=== PATIENT | male | born 1940 | race Caucasian/White ===

== ENCOUNTER 2021-02-17 18:43 | Inpatient (IN) | payer MEDICARE, OTHER ==
[2021-02-17] MEDS ORDERED: Fentanyl 100 MCG/2 ML VIAL ONE ×2 (20:20→21:20)
[2021-02-17 22:26] LABS: Bilirubin Neg (Negative); Blood, Urine 25 (Negative); Clarity Clear (Clear); Glucose, Urine (Dipstick) Normal (Negative); Ketone, Urine 15 mg/dL (Negative); Leukocyte Negative (Negative); Nitrite Negative (Negative); Protein, Urine (Dipstick) 15 mg/dl (Neg-Trace); Urobilinogen Normal mg/dL (Less than 2); pH, Urine 6.5 (5.0-9.0)
[2021-02-17 22:38] LABS: ALT (SGPT) 15 U/L (8-55); AST (SGOT) 18 U/L (5-34); Albumin 3.9 g/dL (3.4-4.8); Alkaline Phosphatase 48 U/L (40-110); Anion Gap 13 mmol/L (10-20); BUN (Urea Nitrogen) 28 mg/dL (8.4-25.7); CK (CPK) 164 U/L (30-200); Calc. Creatinine Clearance 0 mL/min (70-130); Calcium 8.8 mg/dL (7.8-10.44); Carbon Dioxide 25 mmol/L (23-31); Chloride 105 mmol/L (98-107); Globulin 2.7 g/dL (2.4-3.5); Glucose 86 mg/dL (83-110); Protein, Total 6.6 g/dL (5.8-8.1); Sodium 139 mmol/L (136-145)
[2021-02-17 22:39] LABS: #Eosinphils 0.1 10x3/uL (0.0-0.5); #Monocytes 0.6 10x3/uL (0.0-1.1); #Neutrophils 8.4 10x3/uL (1.5-8.4); %Basophils 0.4 % (0.0-2.0); %Eosinophils 0.9 % (0.0-6.0); %Lymphocytes 10.4 % (18.0-47.0); %Monocytes 6.1 % (0.0-10.0); %Neutrophils 81.8 % (40.0-75.0); Hemoglobin 13.8 g/dL (13.5-17.5); Mean Corpuscular HGB CONC 33.6 g/dL (32.0-36.0); Mean Corpuscular Hemoglobin 33.1 pg (27.0-33.0); Mean Corpuscular Volume 98.6 fl (81.2-95.1); Mean Platelet Volume 11.6 fl (7.4-10.4); Platelet Count 162 10x3/uL (150-450); RBC Distribution Width 12.6 % (11.5-14.5); Red Blood Cell (RBC) Count 4.17 10x6/uL (4.32-5.72); White Blood Cell (WBC) Count 10.2 10x3/uL (3.5-10.5)
[2021-02-17] MEDS ORDERED: HYDROcodone/Acetaminophen 5/325 mg Tablet ONE (22:39)
[2021-02-17 22:50] LABS: Squamous Epithelial 0-3 HPF (0-3); WBC/HPF 0-3 HPF (0-3)
[2021-02-17 22:51] LABS: Bacteria/HPF Rare-Few HPF (None Seen); Calcium Oxalate Crystals 1+ HPF (None Seen)
[2021-02-17] MEDS ORDERED: Zolpidem Tartrate 5 MG TAB PO PRN (23:30)
[2021-02-17] MEDS ORDERED: Senokot S 8.6-50 MG TAB PO PRN (23:30)
[2021-02-17] MEDS ORDERED: HYDROcodone/Acetaminophen 5/325 mg Tablet PO PRN (23:30)
[2021-02-17] MEDS ORDERED: Acetaminophen 325 MG TAB PO PRN (23:30)
[2021-02-17] MEDS ORDERED: Calcium Carbonate 500 MG ChewTAB PO PRN (23:30)
[2021-02-18] MEDS ORDERED: Morphine 2 MG/ML VIAL SLOW IVP PRN (01:07)
[2021-02-18 01:15] VITALS: BMI 25.7
[2021-02-18 05:12] LABS: Anion Gap 9 mmol/L (10-20); BUN (Urea Nitrogen) 19 mg/dL (8.4-25.7); Calc. Creatinine Clearance 109 mL/min (70-130); Calcium 8.5 mg/dL (7.8-10.44); Carbon Dioxide 30 mmol/L (23-31); Chloride 104 mmol/L (98-107); Glucose 91 mg/dL (83-110); Magnesium 2.3 mg/dL (1.6-2.6); Potassium 3.8 mmol/L (3.5-5.1); Sodium 139 mmol/L (136-145)
[2021-02-18] MEDS: Famotidine 20 MG TAB PO SCH ×2 (09:10→20:40)
[2021-02-18] MEDS: Lisinopril 10 MG TAB PO SCH (09:10)
[2021-02-18] MEDS: Cholecalciferol 1,000 UNITS (25 MCG) TAB PO SCH (09:10)
[2021-02-18] MEDS: Metoprolol Tartrate 25 MG TAB PO SCH ×2 (09:17→20:40)
[2021-02-18] MEDS: Enoxaparin Sodium 40 MG/0.4 ML SYRINGE SC SCH (09:21)
[2021-02-18 13:45] LABS: SARS-CoV-2 PCR by NAA Not Detected (NotDetected)
[2021-02-18] MEDS ORDERED: Montelukast Sodium 10 mg Tablet PO SCH (14:45)
[2021-02-18] MEDS: Donepezil HCl 5 MG TAB PO SCH (20:40)
[2021-02-19] MEDS: Cholecalciferol 1,000 UNITS (25 MCG) TAB PO SCH (10:53)
[2021-02-19] MEDS: Lisinopril 10 MG TAB PO SCH (10:55)
[2021-02-19] MEDS: Famotidine 20 MG TAB PO SCH ×2 (10:55→20:58)
[2021-02-19] MEDS: Enoxaparin Sodium 40 MG/0.4 ML SYRINGE SC SCH (10:55)
[2021-02-19] MEDS: Metoprolol Tartrate 25 MG TAB PO SCH ×2 (10:56→20:57)
[2021-02-19 16:37] LABS: Bilirubin Neg (Negative); Blood, Urine 250 (Negative); Clarity Cloudy (Clear); Glucose, Urine (Dipstick) Normal (Negative); Ketone, Urine 15 mg/dL (Negative); Leukocyte 25 (Negative); Nitrite Negative (Negative); Protein, Urine (Dipstick) 15 mg/dl (Neg-Trace); Urobilinogen Normal mg/dL (Less than 2)
[2021-02-19 16:45] LABS: Urine Culture Reflex No No
[2021-02-19 16:47] LABS: Bacteria/HPF Rare-Few HPF (None Seen); RBC/HPF Greater than 50 HPF (0-3); Squamous Epithelial None Seen HPF (0-3); WBC/HPF 0-3 HPF (0-3)
[2021-02-19 20:54] VITALS: BP 130/78; TEMP 97.7
[2021-02-19] MEDS: Donepezil HCl 5 MG TAB PO SCH (20:57)
[2021-02-19] MEDS ORDERED: Montelukast Sodium 10 mg Tablet PO SCH (21:00)
== END 2021-02-19 21:45 | DRG 552 ==
LOC: CSHERS 18:43 → CSHTELE 23:30 → UNDOADMOB 02-18 00:43 → INTOOBSV 02-18 00:43 → OBSVTOIN 02-19 12:10
PROVIDERS: ADMIT Student in an Organized Health Care Education/Training Program; ATTEND Family Medicine
DX: S32.000A Wedge compression fracture of unspecified lumbar vertebra, initial encounter for closed fracture (principal); R29.6 Repeated falls; N19 Unspecified kidney failure; Z66 Do not resuscitate; E55.9 Vitamin D deficiency, unspecified; F03.90 Unspecified dementia, unspecified severity, without behavioral disturbance, psychotic disturbance, mood disturbance, and anxiety; M19.90 Unspecified osteoarthritis, unspecified site; R01.1 Cardiac murmur, unspecified; I10 Essential (primary) hypertension; Z20.822 Contact with and (suspected) exposure to COVID-19
CPT/HCPCS: 36415; 70450; 72125; 72128; 72131; 80048; 80053; 81001; 81003; 81015; 82550; 83735; 84443; 84484; 85025; 87086; 87635; 93005; 93306; 96372; 96374; 96376; G0378; J1650; J3010; U0003; U0005

== ENCOUNTER 2022-01-11 16:39 | Inpatient (IN) | payer MEDICARE ==
[2022-01-11] MEDS ORDERED: Morphine 4 MG/ML VIAL ONE (17:27)
[2022-01-11 17:44] LABS: #Basophils 0.1 10x3/uL (0.0-0.2); #Eosinphils 0.1 10x3/uL (0.0-0.5); #Monocytes 1.1 10x3/uL (0.0-1.1); %Basophils 0.4 % (0.0-2.0); %Eosinophils 0.4 % (0.0-6.0); %Lymphocytes 9.3 % (18.0-47.0); %Monocytes 8.3 % (0.0-10.0); %Neutrophils 81.2 % (40.0-75.0); Hemoglobin 13.4 g/dL (13.5-17.5); Mean Corpuscular HGB CONC 32.7 g/dL (32.0-36.0); Mean Corpuscular Hemoglobin 33.3 pg (27.0-33.0); Mean Corpuscular Volume 101.7 fl (81.2-95.1); Mean Platelet Volume 10.4 fl (7.4-10.4); Platelet Count 223 10x3/uL (150-450); Red Blood Cell (RBC) Count 4.03 10x6/uL (4.32-5.72); White Blood Cell (WBC) Count 13.6 10x3/uL (3.5-10.5)
[2022-01-11 17:54] LABS: ALT (SGPT) 36 U/L (8-55); AST (SGOT) 26 U/L (5-34); Albumin 4.2 g/dL (3.4-4.8); Alkaline Phosphatase 63 U/L (40-110); Anion Gap 18 mmol/L (10-20); BUN (Urea Nitrogen) 23 mg/dL (8.4-25.7); Bilirubin, Total 0.7 mg/dL (0.2-1.2); Calc. Creatinine Clearance 0 mL/min (70-130); Carbon Dioxide 24 mmol/L (23-31); Chloride 101 mmol/L (98-107); Globulin 2.9 g/dL (2.4-3.5); Glucose 98 mg/dL (83-110); Magnesium 2.4 mg/dL (1.6-2.6); Potassium 3.8 mmol/L (3.5-5.1); Protein, Total 7.1 g/dL (5.8-8.1); Sodium 139 mmol/L (136-145)
[2022-01-11 18:27] LABS: Bilirubin Neg (Negative); Blood, Urine 25 (Negative); Clarity Clear (Clear); Glucose, Urine (Dipstick) Normal (Negative); Ketone, Urine Negative (Negative); Leukocyte 25 (Negative); Nitrite Negative (Negative); Protein, Urine (Dipstick) 30 mg/dl (Neg-Trace); Specific Gravity, Urine 1.015 (1.002-1.036); Urobilinogen Normal mg/dL (Less than 2)
[2022-01-11 18:50] LABS: Bacteria/HPF 1+ HPF (None Seen); RBC/HPF 0-3 HPF (0-3); Squamous Epithelial 0-3 HPF (0-3)
[2022-01-11 18:51] LABS: Mucous/LPF 2+ LPF (<2+)
[2022-01-11] MEDS ORDERED: cefTRIAXone\\ROCEPHIN 1 GM VIAL ONE (19:06)
[2022-01-11 19:40] LABS: SARS-CoV-2 NAA Rapid Test Not Detected (NotDetected)
[2022-01-11] MEDS ORDERED: Boostrix 0.5 ML (Tdap) VIAL ONE (19:59)
[2022-01-11] MEDS ORDERED: Calcium Carbonate 500 MG ChewTAB PO PRN (20:13)
[2022-01-11] MEDS ORDERED: Guaifenesin DM 100-10/5 ML UDCUP PO PRN (20:13)
[2022-01-11] MEDS ORDERED: Bisacodyl 5 MG TAB PO PRN (20:13)
[2022-01-11] MEDS ORDERED: Acetaminophen 325 MG TAB PO PRN (20:13)
[2022-01-11] MEDS ORDERED: Aspirin 81 mg Enteric Coated Tablet PO SCH ×2 (21:00→22:00)
[2022-01-11] MEDS ORDERED: Montelukast Sodium 10 mg Tablet PO SCH ×2 (21:00→22:00)
[2022-01-11] MEDS ORDERED: Famotidine/PF 20 mg/2ml Vial SLOW IVP SCH (22:00)
[2022-01-11] MEDS ORDERED: cefTRIAXone\\ROCEPHIN 1 GM in Sodium Chloride 0.9% 100 ML IVPB SCH (22:00)
[2022-01-11] MEDS ORDERED: Senokot S 8.6-50 MG TAB PO SCH (22:00)
[2022-01-11] MEDS ORDERED: Lactated Ringer's 500 ML IV SCH (23:30)
[2022-01-12] MEDS ORDERED: ceFAZolin 2 GM/Dextrose 50 ML 2 GM in Premix Bag 1 BAG IVPB SCH (00:01)
[2022-01-12 04:30] LABS: #Eosinphils 0.3 10x3/uL (0.0-0.5); #Monocytes 0.8 10x3/uL (0.0-1.1); #Neutrophils 7.7 10x3/uL (1.5-8.4); %Basophils 0.3 % (0.0-2.0); %Eosinophils 3.2 % (0.0-6.0); %Lymphocytes 11.9 % (18.0-47.0); %Monocytes 8.2 % (0.0-10.0); %Neutrophils 76.1 % (40.0-75.0); Hemoglobin 11.8 g/dL (13.5-17.5); Mean Corpuscular HGB CONC 33.6 g/dL (32.0-36.0); Mean Corpuscular Hemoglobin 33.2 pg (27.0-33.0); Mean Corpuscular Volume 98.9 fl (81.2-95.1); Platelet Count 156 10x3/uL (150-450); RBC Distribution Width 13.2 % (11.5-14.5); Red Blood Cell (RBC) Count 3.55 10x6/uL (4.32-5.72); White Blood Cell (WBC) Count 10.2 10x3/uL (3.5-10.5)
[2022-01-12 04:48] LABS: Anion Gap 11 mmol/L (10-20); BUN (Urea Nitrogen) 24 mg/dL (8.4-25.7); Calc. Creatinine Clearance 97 mL/min (70-130); Calcium 8.4 mg/dL (7.8-10.44); Carbon Dioxide 27 mmol/L (23-31); Chloride 102 mmol/L (98-107); Glucose 103 mg/dL (83-110); Magnesium 2.2 mg/dL (1.6-2.6); Potassium 3.8 mmol/L (3.5-5.1); Sodium 136 mmol/L (136-145)
[2022-01-12] MEDS: HYDROcodone/Acetaminophen 5/325 mg Tablet PO PRN ×2 (06:06→16:59)
[2022-01-12] MEDS ORDERED: DONEPEZIL HCL 10 MG PO SCH (09:00)
[2022-01-12] MEDS ORDERED: Tranexamic Acid 1,000 MG/10 ML VIAL ONE (09:55)
[2022-01-12] MEDS ORDERED: Neomycin-Polymyxin 1 ML AMP ONE (09:55)
[2022-01-12] MEDS ORDERED: PROPOFOL 20 ML ONE (10:52)
[2022-01-12] MEDS ORDERED: Fentanyl 100 MCG/2 ML VIAL ONE ×2 (10:52→13:22)
[2022-01-12] MEDS ORDERED: Rocuronium Bromide 10 MG/ML (10ML VIAL) ONE (10:57)
[2022-01-12] MEDS ORDERED: Lidocaine 2% PF 5 ML VIAL ONE (10:57)
[2022-01-12] MEDS ORDERED: ceFAZolin 2 GM/Dextrose 50 ML IVPB ONE (11:10)
[2022-01-12] MEDS ORDERED: Phenylephrine 10 MG/ML VIAL ONE (11:35)
[2022-01-12] MEDS ORDERED: ePHEDrine Sulfate 50 MG/10 ML VIAL ONE (12:24)
[2022-01-12] MEDS ORDERED: Glycopyrrolate 0.2 MG/ML 5 ML SYRINGE ONE (12:34)
[2022-01-12] MEDS: Cholecalciferol 1,000 UNITS (25 MCG) TAB PO SCH (16:15)
[2022-01-12] MEDS: Citalopram 20 MG TAB PO SCH (16:15)
[2022-01-12] MEDS: Cyanocobalamin (Vitamin B-12) 1,000 MCG TAB PO SCH (16:15)
[2022-01-12] MEDS: Famotidine/PF 20 mg/2ml Vial SLOW IVP SCH ×2 (16:16→21:05)
[2022-01-12] MEDS: Enoxaparin Sodium 40 MG/0.4 ML SYRINGE SC SCH (16:16)
[2022-01-12] MEDS: Folic Acid 1 MG TAB PO SCH (16:17)
[2022-01-12] MEDS: Senokot S 8.6-50 MG TAB PO SCH ×2 (16:17→21:06)
[2022-01-12] MEDS: Rosuvastatin 20 MG TAB PO SCH (16:17)
[2022-01-12] MEDS: Lisinopril 10 MG TAB PO SCH (16:17)
[2022-01-12] MEDS: Morphine 4 MG/ML VIAL SLOW IVP PRN (18:34)
[2022-01-12] MEDS ORDERED: cefTRIAXone\\ROCEPHIN 1 GM in Sodium Chloride 0.9% 100 ML IVPB SCH (20:00)
[2022-01-12] MEDS: ceFAZolin 2 GM/Dextrose 50 ML 2 GM in Premix Bag 1 BAG IVPB SCH (21:01)
[2022-01-12] MEDS: Montelukast Sodium 10 mg Tablet PO SCH (21:05)
[2022-01-12] MEDS: Aspirin 81 mg Enteric Coated Tablet PO SCH (21:05)
[2022-01-13] MEDS: Morphine 4 MG/ML VIAL SLOW IVP PRN ×3 (00:53→15:29)
[2022-01-13] MEDS: ceFAZolin 2 GM/Dextrose 50 ML 2 GM in Premix Bag 1 BAG IVPB SCH ×3 (03:08→20:30)
[2022-01-13] MEDS: HYDROcodone/Acetaminophen 5/325 mg Tablet PO PRN (04:57)
[2022-01-13] MEDS: Rosuvastatin 20 MG TAB PO SCH (08:19)
[2022-01-13] MEDS: Famotidine/PF 20 mg/2ml Vial SLOW IVP SCH ×2 (08:19→20:30)
[2022-01-13] MEDS: Enoxaparin Sodium 40 MG/0.4 ML SYRINGE SC SCH (08:19)
[2022-01-13] MEDS: Cholecalciferol 1,000 UNITS (25 MCG) TAB PO SCH (08:20)
[2022-01-13] MEDS: Citalopram 20 MG TAB PO SCH (08:20)
[2022-01-13] MEDS: Senokot S 8.6-50 MG TAB PO SCH ×2 (08:21→22:05)
[2022-01-13] MEDS: Lisinopril 10 MG TAB PO SCH (08:21)
[2022-01-13] MEDS: Cyanocobalamin (Vitamin B-12) 1,000 MCG TAB PO SCH (08:22)
[2022-01-13] MEDS: Folic Acid 1 MG TAB PO SCH (08:22)
[2022-01-13 09:21] LABS: Anion Gap 9 mmol/L (10-20); BUN (Urea Nitrogen) 19 mg/dL (8.4-25.7); Calc. Creatinine Clearance 101 mL/min (70-130); Carbon Dioxide 28 mmol/L (23-31); Chloride 103 mmol/L (98-107); Glucose 120 mg/dL (83-110); Potassium 4.1 mmol/L (3.5-5.1); Sodium 136 mmol/L (136-145)
[2022-01-13] MEDS ORDERED: ceFAZolin 2 GM/Dextrose 50 ML IVPB ONE (09:34)
[2022-01-13] MEDS: Donepezil HCl 5 MG TAB PO SCH (09:38)
[2022-01-13] MEDS ORDERED: Fosfomycin 3 GM/Packet PO SCH (10:30)
[2022-01-13] MEDS: Montelukast Sodium 10 mg Tablet PO SCH (22:05)
[2022-01-13] MEDS: Aspirin 81 mg Enteric Coated Tablet PO SCH (22:06)
[2022-01-14] MEDS: Morphine 4 MG/ML VIAL SLOW IVP PRN ×3 (00:12→11:45)
[2022-01-14] MEDS: ceFAZolin 2 GM/Dextrose 50 ML 2 GM in Premix Bag 1 BAG IVPB SCH ×2 (03:58→11:47)
[2022-01-14 04:14] LABS: Anion Gap 12 mmol/L (10-20); BUN (Urea Nitrogen) 18 mg/dL (8.4-25.7); Calc. Creatinine Clearance 112 mL/min (70-130); Carbon Dioxide 27 mmol/L (23-31); Chloride 103 mmol/L (98-107); Glucose 108 mg/dL (83-110); Potassium 3.7 mmol/L (3.5-5.1); Sodium 138 mmol/L (136-145)
[2022-01-14 04:16] LABS: #Eosinphils 0.5 10x3/uL (0.0-0.5); #Neutrophils 6.4 10x3/uL (1.5-8.4); %Basophils 0.3 % (0.0-2.0); %Eosinophils 5.6 % (0.0-6.0); %Lymphocytes 13.1 % (18.0-47.0); %Monocytes 10.5 % (0.0-10.0); %Neutrophils 70.2 % (40.0-75.0); Hemoglobin 9.6 g/dL (13.5-17.5); Mean Corpuscular HGB CONC 33.6 g/dL (32.0-36.0); Mean Corpuscular Hemoglobin 33.8 pg (27.0-33.0); Mean Corpuscular Volume 100.7 fl (81.2-95.1); Mean Platelet Volume 10.5 fl (7.4-10.4); RBC Distribution Width 13.1 % (11.5-14.5); Red Blood Cell (RBC) Count 2.84 10x6/uL (4.32-5.72); White Blood Cell (WBC) Count 9.1 10x3/uL (3.5-10.5)
[2022-01-14 04:17] LABS: Platelet Count 124 10x3/uL (150-450)
[2022-01-14] MEDS: Famotidine/PF 20 mg/2ml Vial SLOW IVP SCH (08:37)
[2022-01-14] MEDS: Enoxaparin Sodium 40 MG/0.4 ML SYRINGE SC SCH (08:37)
[2022-01-14] MEDS: Citalopram 20 MG TAB PO SCH (08:38)
[2022-01-14] MEDS: Senokot S 8.6-50 MG TAB PO SCH (08:38)
[2022-01-14] MEDS: Folic Acid 1 MG TAB PO SCH (08:38)
[2022-01-14] MEDS: Cyanocobalamin (Vitamin B-12) 1,000 MCG TAB PO SCH (08:39)
[2022-01-14] MEDS: Donepezil HCl 5 MG TAB PO SCH (08:39)
[2022-01-14] MEDS: Rosuvastatin 20 MG TAB PO SCH (08:39)
[2022-01-14] MEDS: Cholecalciferol 1,000 UNITS (25 MCG) TAB PO SCH (08:39)
[2022-01-14] MEDS ORDERED: Lisinopril 2.5 MG TAB PO SCH (09:00)
[2022-01-14] MEDS ORDERED: Polyethylene Glycol 3350 17 GM Packet PO SCH (09:00)
[2022-01-14 09:17] VITALS: BMI 22.2
[2022-01-14 17:28] VITALS: BP 106/54; TEMP 97.4
== END 2022-01-14 18:10 | DRG 522 ==
LOC: CSHERS 16:39 → CSHTELE 19:44 → OBSVTOIN 20:13
PROVIDERS: ADMIT Student in an Organized Health Care Education/Training Program; ATTEND Family Medicine
PROC: 0SRR0JA Replacement of Right Hip Joint, Femoral Surface with Synthetic Substitute, Uncemented, Open Approach (ICD-10-PCS; principal; 2022-01-12)
DX: S72.031A Displaced midcervical fracture of right femur, initial encounter for closed fracture (principal); I50.42 Chronic combined systolic (congestive) and diastolic (congestive) heart failure; W19.XXXA Unspecified fall, initial encounter; F03.90 Unspecified dementia, unspecified severity, without behavioral disturbance, psychotic disturbance, mood disturbance, and anxiety; G47.33 Obstructive sleep apnea (adult) (pediatric); I49.1 Atrial premature depolarization; E55.9 Vitamin D deficiency, unspecified; D64.9 Anemia, unspecified; Z66 Do not resuscitate; N30.90 Cystitis, unspecified without hematuria; B96.89 Other specified bacterial agents as the cause of diseases classified elsewhere; B95.2 Enterococcus as the cause of diseases classified elsewhere; I11.0 Hypertensive heart disease with heart failure; M47.812 Spondylosis without myelopathy or radiculopathy, cervical region; Z20.822 Contact with and (suspected) exposure to COVID-19; Z91.81 History of falling; Y92.009 Unspecified place in unspecified non-institutional (private) residence as the place of occurrence of the external cause; Z79.899 Other long term (current) drug therapy
CPT/HCPCS: 36415; 70450; 71045; 72125; 72170; 80048; 80053; 81003; 81015; 82607; 82746; 83735; 83880; 84484; 85025; 87077; 87086; 87186; 90715; 93005; 93010; 94760; C1713; C1776; C1874; J0690; J0696; J1650; J2001; J2270; J2370; J2704; J3010; J3490; J7120; S0028; U0002

== ENCOUNTER 2022-09-27 09:07 | Observation (INO) | payer MEDICARE ==
[2022-09-27 09:41] LABS: #Basophils 0.1 10x3/uL (0.0-0.2); #Eosinphils 0.6 10x3/uL (0.0-0.5); #Monocytes 0.5 10x3/uL (0.0-1.1); #Neutrophils 3.5 10x3/uL (1.5-8.4); %Basophils 1.2 % (0.0-2.0); %Eosinophils 9.9 % (0.0-6.0); %Lymphocytes 27.1 % (18.0-47.0); %Monocytes 7.9 % (0.0-10.0); %Neutrophils 53.7 % (40.0-75.0); Hemoglobin 13.4 g/dL (13.5-17.5); Mean Corpuscular HGB CONC 33.8 g/dL (32.0-36.0); Mean Corpuscular Hemoglobin 33.6 pg (27.0-33.0); Mean Corpuscular Volume 99.2 fl (81.2-95.1); Mean Platelet Volume 9.9 fl (7.4-10.4); Platelet Count 226 10x3/uL (150-450); RBC Distribution Width 12.5 % (11.5-14.5); Red Blood Cell (RBC) Count 3.99 10x6/uL (4.32-5.72); White Blood Cell (WBC) Count 6.5 10x3/uL (3.5-10.5)
[2022-09-27 10:07] LABS: ALT (SGPT) 20 U/L (8-55); AST (SGOT) 22 U/L (5-34); Alkaline Phosphatase 86 U/L (40-110); Anion Gap 12 mmol/L (10-20); BUN (Urea Nitrogen) 20 mg/dL (8.4-25.7); Bilirubin, Total 0.9 mg/dL (0.2-1.2); Calc. Creatinine Clearance 0 mL/min (70-130); Calcium 9.3 mg/dL (7.8-10.44); Carbon Dioxide 26 mmol/L (23-31); Chloride 105 mmol/L (98-107); Estimated GFR 89; Globulin 2.7 g/dL (2.4-3.5); Glucose 100 mg/dL (83-110); Potassium 4.4 mmol/L (3.5-5.1); Protein, Total 6.7 g/dL (5.8-8.1); Sodium 139 mmol/L (136-145)
[2022-09-27] MEDS ORDERED: Fentanyl 100 MCG/2 ML VIAL ONE (10:12)
[2022-09-27] MEDS ORDERED: Haloperidol Lactate 5 MG/ML VIAL ONE (11:05)
[2022-09-27] MEDS ORDERED: Acetaminophen 325 MG TAB PO PRN (12:07)
[2022-09-27 12:29] LABS: Lactic Acid 4.1 mmol/L (0.5-2.2)
[2022-09-27] MEDS ORDERED: cefTRIAXone\\ROCEPHIN 1 GM in Sodium Chloride 0.9% 100 ML IVPB SCH ×2 (14:30→15:00)
[2022-09-27 14:37] VITALS: BMI 21.2
[2022-09-27 15:38] LABS: Bilirubin Neg (Negative); Blood, Urine 10 (Negative); CAUTI Indications for Culture Alt mental st,lethar; Clarity Clear (Clear); Glucose, Urine (Dipstick) Normal (Negative); Ketone, Urine 15 mg/dL (Negative); Leukocyte Negative (Negative); Nitrite Negative (Negative); Protein, Urine (Dipstick) Negative (Neg-Trace); Specific Gravity, Urine 1.015 (1.005-1.030); Urobilinogen Normal mg/dL (Less than 2)
[2022-09-27 15:40] LABS: Urine Culture Reflex No No
[2022-09-27 15:48] LABS: Bacteria/HPF 1+ HPF (None Seen); RBC/HPF 0-3 HPF (0-3); Squamous Epithelial 0-3 HPF (0-3)
[2022-09-27] MEDS ORDERED: Aspirin 81 mg Enteric Coated Tablet PO SCH (21:00)
[2022-09-28 05:31] LABS: #Basophils 0.1 10x3/uL (0.0-0.2); #Eosinphils 0.5 10x3/uL (0.0-0.5); #Monocytes 0.7 10x3/uL (0.0-1.1); #Neutrophils 4.3 10x3/uL (1.5-8.4); %Basophils 0.7 % (0.0-2.0); %Eosinophils 6.5 % (0.0-6.0); %Lymphocytes 20.1 % (18.0-47.0); %Monocytes 9.7 % (0.0-10.0); %Neutrophils 62.6 % (40.0-75.0); Mean Corpuscular HGB CONC 34.3 g/dL (32.0-36.0); Mean Corpuscular Hemoglobin 33.3 pg (27.0-33.0); Mean Corpuscular Volume 97.2 fl (81.2-95.1); Mean Platelet Volume 10.3 fl (7.4-10.4); Platelet Count 206 10x3/uL (150-450); RBC Distribution Width 12.8 % (11.5-14.5); White Blood Cell (WBC) Count 6.9 10x3/uL (3.5-10.5)
[2022-09-28 05:49] LABS: Anion Gap 11 mmol/L (10-20); BUN (Urea Nitrogen) 22 mg/dL (8.4-25.7); Calc. Creatinine Clearance 91 mL/min (70-130); Calcium 8.6 mg/dL (7.8-10.44); Carbon Dioxide 23 mmol/L (23-31); Chloride 110 mmol/L (98-107); Estimated GFR 93; Glucose 99 mg/dL (83-110); Potassium 3.6 mmol/L (3.5-5.1); Sodium 140 mmol/L (136-145)
[2022-09-28] MEDS ORDERED: Rosuvastatin 20 MG TAB PO SCH (09:00)
[2022-09-28] MEDS ORDERED: Lisinopril 2.5 MG TAB PO SCH (09:00)
[2022-09-28] MEDS ORDERED: Cyanocobalamin (Vitamin B-12) 1,000 MCG TAB PO SCH (09:00)
[2022-09-28] MEDS ORDERED: Cholecalciferol 1,000 UNITS (25 MCG) TAB PO SCH (09:00)
[2022-09-28] MEDS ORDERED: Folic Acid 1 MG TAB PO SCH (09:00)
[2022-09-28] MEDS ORDERED: Donepezil HCl 5 MG TAB PO SCH (09:00)
[2022-09-28] MEDS ORDERED: Citalopram 20 MG TAB PO SCH (09:00)
[2022-09-28] MEDS ORDERED: Spironolactone 25 MG TAB PO SCH (13:00)
[2022-09-28] MEDS ORDERED: cefTRIAXone\\ROCEPHIN 1 GM in Sodium Chloride 0.9% 100 ML IVPB SCH (15:00)
[2022-09-28 15:36] VITALS: BP 156/80; TEMP 97.9
[2022-09-29] MEDS ORDERED: Spironolactone 25 MG TAB PO SCH (08:00)
== END 2022-09-28 17:27 | disposition home health service (06) ==
LOC: CSHERS 09:07 → CSHTELE 13:23
PROVIDERS: ADMIT Family Medicine; ATTEND Family Medicine
DX: R00.1 Bradycardia, unspecified (principal); I11.0 Hypertensive heart disease with heart failure; I50.42 Chronic combined systolic (congestive) and diastolic (congestive) heart failure; E87.20 Acidosis, unspecified; G47.33 Obstructive sleep apnea (adult) (pediatric); F03.90 Unspecified dementia, unspecified severity, without behavioral disturbance, psychotic disturbance, mood disturbance, and anxiety; D64.9 Anemia, unspecified; R19.7 Diarrhea, unspecified; R32 Unspecified urinary incontinence; Z79.82 Long term (current) use of aspirin; Z79.899 Other long term (current) drug therapy; Z20.822 Contact with and (suspected) exposure to COVID-19
CPT/HCPCS: 70450; 71045; 72125; 73502 ×2; 80048; 80053; 81001; 83605; 84484; 85025 ×2; 87040; 87077; 87086; 87186; 93005; 94760; 96374; 96375 ×2; 97116; 97535; 99285; G0378 ×3; U0003; U0005; 36415; J0696; J1630; J3010; J3490

== ENCOUNTER 2023-06-03 10:29 | Emergency (ER) | payer MEDICARE ==
[2023-06-03 12:56] LABS: Hemoglobin 14.8 g/dL (13.5-17.5); Mean Corpuscular Hemoglobin 33.1 pg (27.0-33.0); Mean Corpuscular Volume 97.3 fl (81.2-95.1); Mean Platelet Volume 10.1 fl (7.4-10.4); Platelet Count 168 10x3/uL (150-450); RBC Distribution Width 13.1 % (11.5-14.5); Red Blood Cell (RBC) Count 4.47 10x6/uL (4.32-5.72)
[2023-06-03 13:10] LABS: ALT (SGPT) 28 U/L (8-55); AST (SGOT) 36 U/L (5-34); Albumin 4.1 g/dL (3.4-4.8); Alkaline Phosphatase 51 U/L (40-110); Anion Gap 19 mmol/L (10-20); BUN (Urea Nitrogen) 35 mg/dL (8.4-25.7); Bilirubin, Total 1.2 mg/dL (0.2-1.2); Calc. Creatinine Clearance 0 mL/min (70-130); Calcium 9.3 mg/dL (7.8-10.44); Carbon Dioxide 22 mmol/L (23-31); Chloride 100 mmol/L (98-107); Estimated GFR 39; Globulin 3.4 g/dL (2.4-3.5); Glucose 121 mg/dL (83-110); Magnesium 2.1 mg/dL (1.6-2.6); Potassium 4.8 mmol/L (3.5-5.1); Protein, Total 7.5 g/dL (5.8-8.1); Sodium 136 mmol/L (136-145)
[2023-06-03 13:21] LABS: MDiff Complete? YES
[2023-06-03 13:25] LABS: Band 7 % (5-11); Lymphocytes 1 % (21-51); Monocytes 3 % (0-10); Neutrophil 89 % (42-75); RBC Morph Comment Within Normal Limits
[2023-06-03 13:26] LABS: Platelet Adequacy Comment Appears Adequate
[2023-06-03 13:33] LABS: CKMB 5.8 ng/mL (0-6.6)
[2023-06-03 14:08] LABS: Bilirubin Neg (Negative); Blood, Urine 250 (Negative); Clarity Clear (Clear); Glucose, Urine (Dipstick) Normal (Negative); Ketone, Urine 5 mg/dL (Negative); Leukocyte 500 (Negative); Nitrite Negative (Negative); Protein, Urine (Dipstick) 30 mg/dl (Neg-Trace); Specific Gravity, Urine 1.025 (1.005-1.030); Urobilinogen Normal mg/dL (Less than 2)
[2023-06-03 14:42] LABS: Bacteria/HPF 1+ HPF (None Seen); CAUTI Indications for Culture Alt mental st,lethar; Mucous/LPF 2+ LPF (<2+); Squamous Epithelial 0-3 HPF (0-3)
[2023-06-03 14:44] LABS: Urine Culture Reflex Yes Yes
[2023-06-03] MEDS ORDERED: cefTRIAXone (ROCEPHIN) 2 GM VIAL ONE (14:54)
[2023-06-03] MEDS ORDERED: Digoxin 0.5 MG/2 ML AMP ONE (15:25)
[2023-06-03] MEDS ORDERED: fentaNYL 50 mcg/mL 1 mL Vial ONE (16:01)
== END 2023-06-03 16:43 | disposition short-term general hospital (02) ==
LOC: CSHERS 10:29
DX: A41.9 Sepsis, unspecified organism (principal); I48.91 Unspecified atrial fibrillation; N39.0 Urinary tract infection, site not specified; I10 Essential (primary) hypertension; Z79.899 Other long term (current) drug therapy; Z79.82 Long term (current) use of aspirin
CPT/HCPCS: 36415; 71045; 72170; 80053; 81001; 82553; 83605; 83735; 84443; 84484; 85025; 87040; 87077; 87086; 87149; 93005; J0696; J1160; J3010

== ENCOUNTER 2023-09-27 15:05 | Inpatient (IN) | payer MEDICARE ==
[2023-09-27] MEDS ORDERED: cefTRIAXone (ROCEPHIN) 2 GM VIAL ONE (16:08)
[2023-09-27 16:36] LABS: #Neutrophils 5.8 10x3/uL (1.5-8.4); %Basophils 0.4 % (0.0-2.0); %Eosinophils 0.4 % (0.0-6.0); %Lymphocytes 14.4 % (18.0-47.0); %Monocytes 11.9 % (0.0-10.0); %Neutrophils 72.7 % (40.0-75.0); Hematocrit 35.8 % (38.8-50.0); Hemoglobin 12.1 g/dL (13.5-17.5); Mean Corpuscular HGB CONC 33.8 g/dL (32.0-36.0); Mean Corpuscular Hemoglobin 31.8 pg (27.0-33.0); Mean Corpuscular Volume 94.2 fl (81.2-95.1); Mean Platelet Volume 10.3 fl (7.4-10.4); Platelet Count 233 10x3/uL (150-450); RBC Distribution Width 14.2 % (11.5-14.5)
[2023-09-27 16:47] LABS: Bilirubin Neg (Negative); Blood, Urine 250 (Negative); Clarity Cloudy (Clear); Glucose, Urine (Dipstick) Normal (Negative); Ketone, Urine 15 mg/dL (Negative); Leukocyte 500 (Negative); Nitrite Negative (Negative); Protein, Urine (Dipstick) 100 mg/dl (Neg-Trace); Urobilinogen Normal mg/dL (Less than 2)
[2023-09-27 16:51] LABS: Bacteria/HPF 3+ HPF (None Seen); Squamous Epithelial None Seen HPF (0-3); WBC/HPF Greater Than 50 HPF (0-3)
[2023-09-27 16:55] LABS: ALT (SGPT) 9 U/L (8-55); AST (SGOT) 20 U/L (5-34); Albumin 3.7 g/dL (3.4-4.8); Alkaline Phosphatase 54 U/L (40-110); Anion Gap 11 mmol/L (10-20); BUN (Urea Nitrogen) 20 mg/dL (8.4-25.7); Bilirubin, Total 0.7 mg/dL (0.2-1.2); Calc. Creatinine Clearance 0 mL/min (70-130); Calcium 8.8 mg/dL (7.8-10.44); Carbon Dioxide 27 mmol/L (23-31); Chloride 105 mmol/L (98-107); Estimated GFR 90; Globulin 3.3 g/dL (2.4-3.5); Glucose 112 mg/dL (83-110); Potassium 3.1 mmol/L (3.5-5.1); Sodium 140 mmol/L (136-145)
[2023-09-27] MEDS ORDERED: Guaifenesin DM 100-10/5 ML UDCUP PO PRN (19:17)
[2023-09-27] MEDS ORDERED: Senokot S 8.6-50 MG TAB PO PRN (19:17)
[2023-09-27] MEDS ORDERED: Acetaminophen 325 MG TAB PO PRN (19:17)
[2023-09-27] MEDS ORDERED: Calcium Carbonate 500 MG ChewTAB PO PRN (19:17)
[2023-09-27 20:29] LABS: CK (CPK) 185 U/L (30-200); Magnesium 2.1 mg/dL (1.6-2.6)
[2023-09-27 20:35] LABS: Troponin I 0.016 ng/mL (< 0.028)
[2023-09-27] MEDS ORDERED: Lactated Ringer's 500 ML IV SCH (21:00)
[2023-09-27] MEDS ORDERED: Potassium Chloride 20 MEQ TAB PO SCH ×2 (21:00→23:59)
[2023-09-27] MEDS ORDERED: traMADol HCl 50 MG TAB PO SCH (21:00)
[2023-09-27 21:46] VITALS: BMI 23.4
[2023-09-27] MEDS: Flecainide 50 MG TAB PO SCH (21:50)
[2023-09-27] MEDS: Rosuvastatin 20 MG TAB PO SCH (21:50)
[2023-09-27] MEDS: Aspirin 81 mg Enteric Coated Tablet PO SCH (21:50)
[2023-09-27] MEDS: Donepezil HCl 5 MG TAB PO SCH (21:50)
[2023-09-27] MEDS ORDERED: Vancomycin 1.5 GRAM/300 ML BAG 1.5 GM in Premix 1 BAG IVPB SCH (22:30)
[2023-09-28 02:24] LABS: SARS-CoV-2 NAA Rapid Test Not Detected (NotDetected)
[2023-09-28 04:39] LABS: #Basophils 0.1 10x3/uL (0.0-0.2); #Monocytes 0.7 10x3/uL (0.0-1.1); #Neutrophils 4.3 10x3/uL (1.5-8.4); %Basophils 0.8 % (0.0-2.0); %Eosinophils 0.5 % (0.0-6.0); %Neutrophils 68.5 % (40.0-75.0); Hematocrit 33.8 % (38.8-50.0); Hemoglobin 11.2 g/dL (13.5-17.5); Mean Corpuscular HGB CONC 33.1 g/dL (32.0-36.0); Mean Corpuscular Hemoglobin 30.9 pg (27.0-33.0); Mean Corpuscular Volume 93.4 fl (81.2-95.1); Mean Platelet Volume 10.5 fl (7.4-10.4); Platelet Count 211 10x3/uL (150-450); RBC Distribution Width 14.3 % (11.5-14.5); Red Blood Cell (RBC) Count 3.62 10x6/uL (4.32-5.72); White Blood Cell (WBC) Count 6.3 10x3/uL (3.5-10.5)
[2023-09-28 05:07] LABS: Anion Gap 14 mmol/L (10-20); BUN (Urea Nitrogen) 14 mg/dL (8.4-25.7); Calc. Creatinine Clearance 109 mL/min (70-130); Calcium 8.2 mg/dL (7.8-10.44); Carbon Dioxide 21 mmol/L (23-31); Chloride 108 mmol/L (98-107); Estimated GFR 95; Glucose 97 mg/dL (83-110); Potassium 3.5 mmol/L (3.5-5.1); Sodium 139 mmol/L (136-145)
[2023-09-28] MEDS: Flecainide 50 MG TAB PO SCH ×2 (08:07→20:44)
[2023-09-28] MEDS: Cyanocobalamin (Vitamin B-12) 1,000 MCG TAB PO SCH (08:07)
[2023-09-28] MEDS: Folic Acid 1 MG TAB PO SCH (08:07)
[2023-09-28] MEDS: Clopidogrel Bisulfate 75 MG TAB PO SCH (08:07)
[2023-09-28] MEDS ORDERED: Lisinopril 5 MG TAB PO SCH (09:00)
[2023-09-28] MEDS: cefTRIAXone\\ROCEPHIN 2 GM in Sodium Chloride 0.9% 100 ML IVPB SCH (16:26)
[2023-09-28] MEDS ORDERED: Carvedilol 3.125 MG TAB PO SCH (17:00)
[2023-09-28] MEDS: Aspirin 81 mg Enteric Coated Tablet PO SCH (20:44)
[2023-09-28] MEDS: Donepezil HCl 5 MG TAB PO SCH (20:44)
[2023-09-28] MEDS: Rosuvastatin 20 MG TAB PO SCH (20:44)
[2023-09-29 04:39] LABS: #Basophils 0.1 10x3/uL (0.0-0.2); #Eosinphils 0.3 10x3/uL (0.0-0.5); #Monocytes 0.7 10x3/uL (0.0-1.1); #Neutrophils 2.7 10x3/uL (1.5-8.4); %Eosinophils 5.8 % (0.0-6.0); %Lymphocytes 27.3 % (18.0-47.0); %Neutrophils 51.7 % (40.0-75.0); Hematocrit 34.9 % (38.8-50.0); Hemoglobin 11.6 g/dL (13.5-17.5); Mean Corpuscular HGB CONC 33.2 g/dL (32.0-36.0); Mean Corpuscular Hemoglobin 30.8 pg (27.0-33.0); Mean Corpuscular Volume 92.6 fl (81.2-95.1); Mean Platelet Volume 10.1 fl (7.4-10.4); Platelet Count 223 10x3/uL (150-450); Red Blood Cell (RBC) Count 3.77 10x6/uL (4.32-5.72); White Blood Cell (WBC) Count 5.2 10x3/uL (3.5-10.5)
[2023-09-29 04:54] LABS: Anion Gap 12 mmol/L (10-20); BUN (Urea Nitrogen) 13 mg/dL (8.4-25.7); Calc. Creatinine Clearance 109 mL/min (70-130); Calcium 8.3 mg/dL (7.8-10.44); Carbon Dioxide 23 mmol/L (23-31); Chloride 108 mmol/L (98-107); Estimated GFR 95; Glucose 99 mg/dL (83-110); Potassium 3.1 mmol/L (3.5-5.1); Sodium 140 mmol/L (136-145)
[2023-09-29 05:02] LABS: Troponin I 0.012 ng/mL (< 0.028)
[2023-09-29] MEDS: Clopidogrel Bisulfate 75 MG TAB PO SCH (09:17)
[2023-09-29] MEDS: Cyanocobalamin (Vitamin B-12) 1,000 MCG TAB PO SCH (09:18)
[2023-09-29] MEDS: Flecainide 50 MG TAB PO SCH ×2 (09:18→22:09)
[2023-09-29] MEDS: Folic Acid 1 MG TAB PO SCH (09:18)
[2023-09-29] MEDS: cefTRIAXone\\ROCEPHIN 2 GM in Sodium Chloride 0.9% 100 ML IVPB SCH (17:29)
[2023-09-29] MEDS: Rosuvastatin 20 MG TAB PO SCH (22:09)
[2023-09-29] MEDS: Donepezil HCl 5 MG TAB PO SCH (22:09)
[2023-09-29] MEDS: Aspirin 81 mg Enteric Coated Tablet PO SCH (22:09)
[2023-09-30 06:37] LABS: #Eosinphils 0.8 10x3/uL (0.0-0.5); #Monocytes 0.6 10x3/uL (0.0-1.1); #Neutrophils 2.9 10x3/uL (1.5-8.4); %Basophils 0.7 % (0.0-2.0); %Eosinophils 13.4 % (0.0-6.0); %Lymphocytes 25.2 % (18.0-47.0); %Monocytes 10.8 % (0.0-10.0); %Neutrophils 49.7 % (40.0-75.0); Hematocrit 34.8 % (38.8-50.0); Hemoglobin 11.9 g/dL (13.5-17.5); Mean Corpuscular HGB CONC 34.2 g/dL (32.0-36.0); Mean Corpuscular Hemoglobin 31.4 pg (27.0-33.0); Mean Corpuscular Volume 91.8 fl (81.2-95.1); Mean Platelet Volume 10.3 fl (7.4-10.4); Platelet Count 240 10x3/uL (150-450); RBC Distribution Width 13.9 % (11.5-14.5); Red Blood Cell (RBC) Count 3.79 10x6/uL (4.32-5.72); White Blood Cell (WBC) Count 5.8 10x3/uL (3.5-10.5)
[2023-09-30 06:44] LABS: Anion Gap 10 mmol/L (10-20); BUN (Urea Nitrogen) 15 mg/dL (8.4-25.7); Calc. Creatinine Clearance 104 mL/min (70-130); Calcium 8.3 mg/dL (7.8-10.44); Carbon Dioxide 26 mmol/L (23-31); Chloride 106 mmol/L (98-107); Estimated GFR 94; Glucose 101 mg/dL (83-110); Sodium 139 mmol/L (136-145)
[2023-09-30] MEDS: Clopidogrel Bisulfate 75 MG TAB PO SCH (08:09)
[2023-09-30] MEDS: Folic Acid 1 MG TAB PO SCH (08:09)
[2023-09-30] MEDS: Cyanocobalamin (Vitamin B-12) 1,000 MCG TAB PO SCH (08:09)
[2023-09-30] MEDS: Flecainide 50 MG TAB PO SCH ×2 (08:19→21:20)
[2023-09-30] MEDS: Potassium Chloride 20 MEQ TAB PO SCH ×2 (09:35→16:03)
[2023-09-30] MEDS: cefTRIAXone\\ROCEPHIN 2 GM in Sodium Chloride 0.9% 100 ML IVPB SCH (16:07)
[2023-09-30] MEDS: Rosuvastatin 20 MG TAB PO SCH (21:20)
[2023-09-30] MEDS: Donepezil HCl 5 MG TAB PO SCH (21:20)
[2023-09-30] MEDS: Aspirin 81 mg Enteric Coated Tablet PO SCH (21:20)
[2023-10-01] MEDS: Flecainide 50 MG TAB PO SCH ×2 (08:00→20:27)
[2023-10-01] MEDS: Folic Acid 1 MG TAB PO SCH (08:00)
[2023-10-01] MEDS: Clopidogrel Bisulfate 75 MG TAB PO SCH (08:00)
[2023-10-01] MEDS: Cyanocobalamin (Vitamin B-12) 1,000 MCG TAB PO SCH (08:00)
[2023-10-01] MEDS: cefTRIAXone\\ROCEPHIN 2 GM in Sodium Chloride 0.9% 100 ML IVPB SCH (16:29)
[2023-10-01] MEDS: Potassium Chloride 20 MEQ TAB PO SCH ×2 (20:27→22:20)
[2023-10-01] MEDS: Rosuvastatin 20 MG TAB PO SCH (20:27)
[2023-10-01] MEDS: Donepezil HCl 5 MG TAB PO SCH (20:27)
[2023-10-01] MEDS: Aspirin 81 mg Enteric Coated Tablet PO SCH (20:27)
[2023-10-02 04:35] LABS: Anion Gap 12 mmol/L (10-20); BUN (Urea Nitrogen) 11 mg/dL (8.4-25.7); Calc. Creatinine Clearance 112 mL/min (70-130); Calcium 8.7 mg/dL (7.8-10.44); Carbon Dioxide 22 mmol/L (23-31); Chloride 109 mmol/L (98-107); Estimated GFR 96; Glucose 100 mg/dL (83-110); Magnesium 2.2 mg/dL (1.6-2.6); Potassium 4.3 mmol/L (3.5-5.1); Sodium 139 mmol/L (136-145)
[2023-10-02] MEDS: Flecainide 50 MG TAB PO SCH (08:38)
[2023-10-02] MEDS: Folic Acid 1 MG TAB PO SCH (08:38)
[2023-10-02] MEDS: Clopidogrel Bisulfate 75 MG TAB PO SCH (08:38)
[2023-10-02] MEDS: Cyanocobalamin (Vitamin B-12) 1,000 MCG TAB PO SCH (08:38)
[2023-10-02 12:36] VITALS: TEMP 98.1
[2023-10-02 15:21] VITALS: BP 145/89
== END 2023-10-02 14:51 | DRG 690 ==
LOC: CSHERS 15:05 → CSHTELE 20:21
PROVIDERS: ADMIT Student in an Organized Health Care Education/Training Program; ATTEND Family Medicine
DX: N39.0 Urinary tract infection, site not specified (principal); I42.8 Other cardiomyopathies; I50.42 Chronic combined systolic (congestive) and diastolic (congestive) heart failure; F03.90 Unspecified dementia, unspecified severity, without behavioral disturbance, psychotic disturbance, mood disturbance, and anxiety; Z66 Do not resuscitate; I48.0 Paroxysmal atrial fibrillation; I11.0 Hypertensive heart disease with heart failure; G47.33 Obstructive sleep apnea (adult) (pediatric); Z96.641 Presence of right artificial hip joint; E86.0 Dehydration; E87.5 Hyperkalemia; R53.1 Weakness; R53.81 Other malaise; E87.6 Hypokalemia; Z79.899 Other long term (current) drug therapy; Z98.890 Other specified postprocedural states; Z79.01 Long term (current) use of anticoagulants; Z79.82 Long term (current) use of aspirin; Z11.52 Encounter for screening for COVID-19
CPT/HCPCS: 36415; 80048; 80053; 81001; 82550; 83605; 83735; 83880; 84443; 84484; 85025; 86140; 87040; 87077; 87086; 87186; 93005; 93010; 93306; J0696; J1650; J3370; J3490; J7120

== ENCOUNTER 2023-12-01 14:39 | Emergency (ER) | payer MEDICARE ==
[2023-12-01 15:12] LABS: #Basophils 0.1 10x3/uL (0.0-0.2); #Eosinphils 0.3 10x3/uL (0.0-0.5); #Monocytes 0.5 10x3/uL (0.0-1.1); #Neutrophils 4.4 10x3/uL (1.5-8.4); %Basophils 1.1 % (0.0-2.0); %Eosinophils 5.1 % (0.0-6.0); %Lymphocytes 20.6 % (18.0-47.0); %Monocytes 6.9 % (0.0-10.0); %Neutrophils 66.1 % (40.0-75.0); Hematocrit 34.8 % (38.8-50.0); Hemoglobin 11.5 g/dL (13.5-17.5); Mean Corpuscular Hemoglobin 32.4 pg (27.0-33.0); Mean Platelet Volume 10.8 fl (7.4-10.4); Platelet Count 244 10x3/uL (150-450); RBC Distribution Width 14.6 % (11.5-14.5); Red Blood Cell (RBC) Count 3.55 10x6/uL (4.32-5.72); White Blood Cell (WBC) Count 6.7 10x3/uL (3.5-10.5)
[2023-12-01 15:43] LABS: ALT (SGPT) 16 U/L (8-55); Albumin 3.6 g/dL (3.4-4.8); Alkaline Phosphatase 50 U/L (40-110); Anion Gap 12 mmol/L (10-20); BUN (Urea Nitrogen) 20 mg/dL (8.4-25.7); Bilirubin, Total 0.4 mg/dL (0.2-1.2); Calc. Creatinine Clearance 0 mL/min (70-130); Calcium 8.3 mg/dL (7.8-10.44); Carbon Dioxide 22 mmol/L (23-31); Chloride 109 mmol/L (98-107); Estimated GFR 89; Globulin 3.2 g/dL (2.4-3.5); Glucose 114 mg/dL (83-110); Lipase 16 U/L (8-78); Protein, Total 6.8 g/dL (5.8-8.1); Sodium 139 mmol/L (136-145)
[2023-12-01 15:46] LABS: AST (SGOT) 29 U/L (5-34); Magnesium 2.1 mg/dL (1.6-2.6)
[2023-12-01 16:01] LABS: Troponin I 0.014 ng/mL (< 0.028)
[2023-12-01 17:13] LABS: Bilirubin Neg (Negative); Blood, Urine 50 (Negative); Clarity Clear (Clear); Glucose, Urine (Dipstick) Normal (Negative); Ketone, Urine Negative (Negative); Leukocyte Negative (Negative); Nitrite Negative (Negative); Protein, Urine (Dipstick) 30 mg/dl (Neg-Trace); Specific Gravity, Urine 1.025 (1.005-1.030); Urobilinogen Normal mg/dL (Less than 2)
[2023-12-01 17:29] LABS: Bacteria/HPF 2+ HPF (None Seen); CAUTI Indications for Culture Alt mental st,lethar; Mucous/LPF 1+ LPF (<2+); Squamous Epithelial 0-3 HPF (0-3); Urine Culture Reflex No No; WBC/HPF 0-3 HPF (0-3)
== END 2023-12-01 18:05 | disposition home or self-care (01) ==
LOC: CSHERS 14:39
DX: R53.1 Weakness (principal); I10 Essential (primary) hypertension
CPT/HCPCS: 36415; 70450; 71045; 80053; 81001; 83690; 83735; 83880; 84484; 85025; 87086; 93005; 93010

== ENCOUNTER 2024-02-02 16:48 | Emergency (ER) | payer MEDICARE ==
[2024-02-02] MEDS ORDERED: Morphine 2 MG/ML VIAL ONE (17:50)
[2024-02-02] MEDS ORDERED: Morphine 4 MG/ML VIAL ONE (17:51)
[2024-02-02] MEDS ORDERED: Boostrix 0.5 ML (Tdap) VIAL (>/=7 yrs of age) ONE (17:51)
[2024-02-02] MEDS ORDERED: Ketorolac Tromethamine 30 MG (1 mL) VIAL ONE (18:32)
== END 2024-02-02 22:31 ==
LOC: CSHERS 16:48
DX: S32.592A Other specified fracture of left pubis, initial encounter for closed fracture (principal); I10 Essential (primary) hypertension; I48.91 Unspecified atrial fibrillation; W18.30XA Fall on same level, unspecified, initial encounter
CPT/HCPCS: 70450; 72170; 90471; 90715; 96374; 96375; J1885; J2270; J2272